=== PATIENT | male | born 1975 | race African-American/Black ===

== ENCOUNTER 2017-09-14 07:17 | Emergency (ER) | payer SELFPAY ==
--- NOTE | 2017-09-14 07:35 | ER ---
Nurse's Notes [facility] Name: General Dejah Hanley Age: 42 yrs Sex: Male : 1975 Arrival Date: 09/14/2017 Time: 07:19 Bed 13 Private MD: Diagnosis: Pain in left hip;Sciatica, left side Presentation: 09/14 07:23 Presenting complaint: Patient states: LEFT hip pain x 1 year, worse over last 2 days. hb Denies recent injury. Transition of care: patient was not received from another setting of care. Onset of symptoms was September 14, 2017. Initial Sepsis Screen: Does the patient meet any 2 criteria? No. Patient's initial sepsis screen is negative. Does the patient have a suspected source of infection? No. Patient's initial sepsis screen is negative. Care prior to arrival: Medication(s) given: Motrin, at 0400 today. 07:23 Method Of Arrival: Ambulatory 07:23 Acuity: LAVON 4 hb Historical: - Allergies: 07:24 No Known Allergies; hb - Home Meds: 07:24 None [Active]; hb - PMHx: 07:24 None; hb - PSHx: 07:24 None; hb - Immunization history:: Adult Immunizations up to date. - Social history:: Smoking status: Patient/guardian denies using tobacco. Screenin:55 Abuse screen: Denies threats or abuse. Denies injuries from another. Nutritional ph screening: No deficits noted. Tuberculosis screening: No symptoms or risk factors identified. Fall Risk None identified. Assessment: 07:30 General: Appears in no apparent distress. uncomfortable, well groomed, Behavior is ph calm, cooperative, appropriate for age. Pain: Complains of pain in left hip Pain radiates to left leg. Neuro: Level of Consciousness is awake, alert, obeys commands, Oriented to person, place, time, situation. Cardiovascular: Capillary refill < 3 seconds Patient's skin is warm and dry. Respiratory: Airway is patent Respiratory effort is even, unlabored, Respiratory pattern is regular, symmetrical. GI: No signs and/or symptoms were reported involving the gastrointestinal system. Derm: Skin is intact, is healthy with good turgor, Skin is pink, warm \T\ dry. Musculoskeletal: Circulation, motion, and sensation intact. Range of motion: intact in all extremities. Vital Signs: 07:24 BP 141 / 87; Pulse 88; Resp 16; Temp 97.9(TE); Pulse Ox 100% on R/A; Weight 115.67 kg; hb Height 6 ft. 3 in. (190.50 cm); Pain 10/10; 07:24 Body Mass Index 31.87 (115.67 kg, 190.50 cm) hb ED Course: 07:19 Patient arrived in ED. as 07:21 Darren Mclaughlin MD is Attending Physician. gs 07:24 Triage completed. hb 07:24 Arm band placed on right wrist. hb 07:30 Carolina Sosa, RN is Primary Nurse. ph 07:30 Patient has correct armband on for positive identification. Bed in low position. Call ph light in reach. Side rails up X 1. 07:34 Naeem Trivedi MD is Referral Physician. gs 07:34 Daria Richards DO is Referral Physician. 07:56 No provider procedures requiring assistance completed. Patient did not have IV access ph during this emergency room visit. Administered Medications: No medications were administered Outcome: 07:35 Discharge ordered by . gs 07:56 Discharged to home ambulatory. ph 07:56 Condition: good 07:56 Discharge instructions given to patient, Instructed on discharge instructions, follow up and referral plans. medication usage, Demonstrated understanding of instructions, follow-up care, medications, Prescriptions given X 2. 07:57 Patient left the ED. ph Signatures: Gila Richardson as Carolina Sosa, RN RN Kandice Mittal RN RN Darren Mclaughlin MD MD
--- NOTE | 2017-09-14 07:35 | EDPHYS ---
Physician Documentation [facility] Name: General Dejah Hanley Age: 42 yrs Sex: Male : 1975 Arrival Date: 09/14/2017 Time: 07:19 Bed 13 Private MD: ED Physician Darren Mclaughlin HPI: 09/14 07:30 This 42 yrs old Black Male presents to ER via Ambulatory with complaints of Hip Pain. gs 07:30 The patient or guardian reports pain. The complaints affect the left hip. Onset: The gs symptoms/episode began/occurred 3 month(s) ago. Modifying factors: the symptoms are aggravated by any movement, flexion. Associated signs and symptoms: Loss of consciousness: the patient experienced no loss of consciousness, Pertinent negatives: abdominal pain, headache, incontinence, vomiting. Severity of symptoms: At their worst the symptoms were moderate, in the emergency department the symptoms are unchanged. The patient has experienced similar episodes in the past, chronically, recently seen had xrays told had arthritis.. Historical: - Allergies: 07:24 No Known Allergies; hb - Home Meds: 07:24 None [Active]; hb - PMHx: 07:24 None; hb - PSHx: 07:24 None; hb - Immunization history:: Adult Immunizations up to date. - Social history:: Smoking status: Patient/guardian denies using tobacco. ROS: 07:30 All other systems are negative. gs Exam: 07:30 Cardiovascular: Regular rate and rhythm with a normal S1 and S2. No gallops, murmurs, gs or rubs. Normal PMI, no JVD. No pulse deficits. Respiratory: Lungs have equal breath sounds bilaterally, clear to auscultation and percussion. No rales, rhonchi or wheezes noted. No increased work of breathing, no retractions or nasal flaring. Abdomen/GI: Soft, non-tender, with normal bowel sounds. No distension or tympany. No guarding or rebound. No evidence of tenderness throughout. Skin: Warm, dry with normal turgor. Normal color with no rashes, no lesions, and no evidence of cellulitis. 07:30 Constitutional: The patient appears alert, awake. 07:30 Musculoskeletal/extremity: Joints: the left hip displays painful range of motion, tender in sciatic notch, + slr at 45 degrees. Vital Signs: 07:24 BP 141 / 87; Pulse 88; Resp 16; Temp 97.9(TE); Pulse Ox 100% on R/A; Weight 115.67 kg; hb Height 6 ft. 3 in. (190.50 cm); Pain 10/10; 07:24 Body Mass Index 31.87 (115.67 kg, 190.50 cm) hb MDM: 07:30 Patient medically screened. 07:30 Differential diagnosis: bursitis, arthritis, strain. Data reviewed: vital signs, nurses gs notes. Response to treatment: the patient's symptoms have mildly improved after treatment, and as a result, I will discharge patient. 07:36 Counseling: I had a detailed discussion with the patient and/or guardian regarding: the gs presence of at least one elevated blood pressure reading (>120/80) during this emergency department visit. Special discussion: I have referred the patient to see his PCP for further evaluation of high blood pressure. Administered Medications: No medications were administered Disposition: 09/14/17 07:35 Discharged to Home. Impression: Pain in left hip, Sciatica, left side. - Condition is Stable. - Discharge Instructions: Arthralgia, Arthritis, Nonspecific, Sciatica, Managing Your High Blood Pressure. - Prescriptions for Naprosyn 500 mg Oral Tablet - take 1 tablet by ORAL route 2 times per day take with food; 20 tablet. Prednisone 20 mg Oral Tablet - take 1 tablet by ORAL route once daily for 5 days; 5 tablet. - Medication Reconciliation Form, Thank You Letter, Antibiotic Education, Prescription Opioid Use form. - Follow up: Naeem Trivedi MD; When: 2 - 3 days; Reason: Re-evaluation by your physician. Follow up: Daria Richards DO; When: 2 - 3 days; Reason: Re-evaluation by your physician. Signatures: Carolina Sosa RN RN Kandice Mittal RN RN Darren Mclaughlin MD MD
== END 2017-09-14 07:57 | disposition home or self-care (01) ==
LOC: ER 07:17
DX: M25.552 Pain in left hip (principal); M54.32 Sciatica, left side
CPT/HCPCS: 99282